=== PATIENT | male | born 1975 | race Caucasian/White ===

== ENCOUNTER 2017-07-01 18:49 | Emergency (ER) | payer MEDICAID ==
[~2017-07-01] VITALS: Ht 182.9 cm; Wt 78.4 kg
[~2017-07-01 18:49] MED LIST: AMOX-422 PO; ATEN25TA PO; CHLO25CA10 PO; CIPR10DR LEFT EAR; DIAZ10TA PO; DIPH-186 PO; FAMO-128 PO; FOLI1TAB16 PO; GABA600T2 PO; GUAI-425 PO; IBUP-1986 PO; MAGN64TA12 PO; MULT1TAB74 PO; PROM25TA14 PO; THI100T PO
[2017-07-01] MEDS ORDERED: SULF1TAB49 PO (21:05)
[2017-07-01 21:21] VITALS: BP 135/68
== END 2017-07-01 21:24 | disposition home or self-care (01) ==
LOC: ER 18:49
DX: H72.92 Unspecified perforation of tympanic membrane, left ear (principal); H66.92 Otitis media, unspecified, left ear; I10 Essential (primary) hypertension; Z56.0 Unemployment, unspecified; Z98.890 Other specified postprocedural states; Z79.899 Other long term (current) drug therapy
CPT/HCPCS: 99283

== ENCOUNTER 2017-07-14 08:53 | Emergency (ER) | payer MEDICAID ==
[~2017-07-14] VITALS: Ht 182.9 cm; Wt 91.0 kg
[~2017-07-14 08:53] MED LIST changes: -AMOX-422 PO; -CIPR10DR LEFT EAR
[2017-07-14 09:41] VITALS: BP 142/93
== END 2017-07-14 10:42 | disposition home or self-care (01) ==
LOC: ER 08:53
DX: H92.03 Otalgia, bilateral (principal); I10 Essential (primary) hypertension; Z56.0 Unemployment, unspecified; Z79.899 Other long term (current) drug therapy
CPT/HCPCS: 99281

== ENCOUNTER 2017-08-11 17:33 | Emergency (ER) | payer MEDICAID ==
[~2017-08-11] VITALS: Ht 182.9 cm; Wt 86.4 kg
[2017-08-11 17:53] VITALS: BP 151/97
[2017-08-11] MEDS ORDERED: CEPH500C5 PO (19:48)
[2017-08-11] MEDS ORDERED: SULF1TAB49 PO (19:48)
== END 2017-08-11 19:54 | disposition home or self-care (01) ==
LOC: ER 17:33
DX: L03.032 Cellulitis of left toe (principal); I10 Essential (primary) hypertension; Z98.890 Other specified postprocedural states; Z56.0 Unemployment, unspecified; Z79.899 Other long term (current) drug therapy
CPT/HCPCS: 99283